=== PATIENT | female | born 1980 | race Caucasian/White ===

== ENCOUNTER 2022-01-16 08:18 | Emergency (ER) | payer OTHER, SELFPAY ==
--- NOTE | 2022-01-16 08:59 | ED.FEMALEGU ---
HPI - Female Genitourinary General Chief complaint: Urogenital-Female Stated complaint: possible UTI Time Seen by Provider: 01/16/22 08:58 Source: patient Mode of arrival: ambulatory Limitations: no limitations History of Present Illness HPI Narrative: 41-year-old female with history of kidney stones presents to the ER with signs and symptoms of UTI. She reports for the last 3 days she had a head worsening increased urinary frequency, urgency, burning upon urination. She also developed some external vaginal itching and white thick discharge. She has history of yeast infection, usually when she is on antibiotics. No recent antibiotics. Not sexually active her concern for STIs. She denies any abdominal pain, nausea, vomiting, fever, chills. She has history of an infected kidney stone and reports she has no back pain. MD elicited complaint: dysuria, vaginal discharge and genital itching Pertinent past history: pyelonephritis Onset (ago): day(s) (3) Location of symptoms: external genitalia, suprapubic and vaginal Severity: moderate Female Urogenital Radiation: Suprapubic Severity scale (1-10): 5 Quality of pain: burning and aching Consistency: intermittent Vaginal discharge: white and thick/cheesy Vaginal bleeding: none Urinary symptoms: Dysuria, Urgency and Frequency Exacerbating factors: urination Relieving factors: none Associated symptoms: denies other symptoms Treatment prior to arrival: none Sexual activity: No Patient : No Related Data Previous Rx's Medication Instructions Recorded fluconazole 150 mg tablet 150 mg PO ONCE #1 tab 01/16/22 (Diflucan) nitrofurantoin 100 mg PO Q12H 5 Days #10 cap 01/16/22 monohydrate/macrocrystals 100 mg capsule (Macrobid) Allergies Allergy/AdvReac Type Severity Reaction Status Date / Time Unable to Assess Allergy Unverified 01/16/22 09:17 Review of Systems Review of Systems: Constitutional: No Fever, No Chills Cardiovascular: No Chest Pain, No SOB Gastrointestinal: No Nausea, No Vomiting, No Diarrhea, No abdominal Pain Genitourinary:+ Dysuria, + Urinary Frequency, No Hematuria, +urinary urgency, +vaginal discharge Musculoskeletal: No joint pain, No Myalgias Skin: No Skin Lesions, No rash Neuro: No Weakness, No Dizziness, No Headache Psych: + Anxiety/Panic, No Depression Heme/Lymph: No Bruising, No Lymphadenopathy Endocrine: No Polyuria, No Polydipsia PMFSH Social History Social History Advance Directives: No Advance Directives Information Provided: No Physical Exam Vital Signs: Vital Signs: Last Vital Signs Pulse 69 01/16/22 09:00 Resp 16 01/16/22 09:00 BP 128/86 01/16/22 09:00 Pulse Ox 97 01/16/22 09:00 BMI result Body Mass Index 34.2 Appearance: Alert. Oriented X3. No acute distress. HEENT: Normal external inspection Neck: Normal inspection. Neck supple. CVS: Normal heart rate and rhythm. Pulses normal. Respiratory: No respiratory distress. Breath sounds normal. Abdomen: Soft and nontender. +BS x4 Pelvic: External genitalia with some mild erythema and excoriation. Vaginal canal with small amount of thick, white vaginal discharge. No cervical motion tenderness or adnexal tenderness. Skin: Skin warm and dry. Normal skin color. Normal skin turgor. No rashes. Extremities: Normal inspection times for. Neuro: Oriented X 3. Grossly normal, nonfocal Course Course Course Narrative: 41-year-old female presenting to the ER with signs and symptoms of UTI as well as external vaginal itching and white vaginal discharge. Low suspicion for STI. She may have a yeast infection as well as a bacterial urinary tract infection. Will send UA and BV panel. Reevaluation(s) Reevaluation #1: UA is weakly positive but given her symptoms of urgency, frequency and dysuria will empirically treat. Will also treat for candidiasis, given her physical exam findings. She is stable for discharge home with p.o. ABX and outpatient follow-up. MDM - Female Genitourinary Lab Data Labs: Lab Results 01/16/22 Range/Units 09:07 Urine Color YELLOW Urine Appearance CLEAR Urine pH 7.5 (5.0-8.0) Ur Specific [place] 1.010 (1.005-1.025) Urine Protein NEG (NEG-TRACE) MG/DL Urine Glucose (UA) NEG (NEG) MG/DL Urine Ketones NEG (NEG) MG/DL Urine Blood NEG (NEG) Urine Nitrite NEG (NEG) Ur Leukocyte Esterase TRACE H (NEG) Urine RBC 0 (0) /HPF Urine WBC 1-4 (0-4) /HPF Ur Squamous Epith Cells 2+ /LPF Urine Bacteria 2+ /LPF Discharge Plan Discharge Clinical Impression: Urinary tract infection, Vulvovaginal candidiasis Patient Disposition: Home, Self-Care Instructions: Urinary Tract Infection in Women (DC), Yeast Infection (ED) Additional Instructions: If you still have itching and vaginal discharge in 3 days, take the additional dose of Diflucan. Take the prescribed antibiotic as directed, take the entire course. Increase her oral hydration drink plenty of water. No sexual activity until of her symptoms are resolved. If you develop new or worsening symptoms call 911 or come back to the ER for further evaluation. Prescriptions: New fluconazole [Diflucan] 150 mg tablet 150 mg PO ONCE Qty: 1 0RF nitrofurantoin monohyd/m-cryst [Macrobid] 100 mg capsule 100 mg PO Q12H 5 Days Qty: 10 0RF Rx Instructions: must administer with a meal/food
[2022-01-16 09:00] VITALS: BP 128/86; PULSE 69; RESP 16; O2SAT 97; BMI 34.2
[2022-01-16 09:15] LABS: Appearance Urine CLEAR; Color Urine YELLOW; Glucose Urine UA NEG (NEG); Leukocyte Esterase Urine TRACE (NEG); Nitrite Urine NEG (NEG); PH 7.5 (5.0-8.0); Urine Blood NEG (NEG); Urine Ketones NEG (NEG); Urine Protein NEG (NEG-TRACE)
[2022-01-16 09:34] LABS: Bacteria Urine 2+ /LPF; RBC Urine 0 /HPF (0); Squamous Epithelial Cell Urine 2+ /LPF
[2022-01-16] MEDS: Fluconazole 150 MG TABLET PO (10:04)
[2022-01-16 13:53] LABS: BV Int Neg Control Negative (Negative); BV Int Pos Control Positive (Positive)
== END 2022-01-16 10:08 | disposition home or self-care (01) ==
PROVIDERS: Physician Assistant; Emergency Provider Emergency Medicine Emergency Medical Services
DX: N39.0 Urinary tract infection, site not specified (principal); B37.3 Candidiasis of vulva and vagina; R35.0 Frequency of micturition; R30.0 Dysuria; Z79.899 Other long term (current) drug therapy
CPT/HCPCS: 81001; 87480; 87510; 87660; 99283

== ENCOUNTER 2022-08-03 16:54 | Emergency (ER) | payer OTHER, SELFPAY ==
--- NOTE | ~2022-08-03 | XR_ITS ---
EXAMINATION: XR CHEST CLINICAL INFORMATION: Shortness of breath. COMPARISON: None TECHNIQUE: 2 views of the chest were obtained. FINDINGS: Normal appearance of the cardiomediastinal silhouette. No focal airspace opacity, pleural effusion or pneumothorax. Small calcified granulomas are noted in the right lung base. Right upper quadrant surgical clips are seen. No acute osseous abnormalities. XR/XR chest 2V IMPRESSION: No acute cardiopulmonary findings.
--- NOTE | 2022-08-03 16:57 | ECG_ITS ---
Test Reason : CHEST PAIN Blood Pressure : / mmHG Vent. Rate : 068 BPM Atrial Rate : 068 BPM P-R Int : 146 ms QRS Dur : 070 ms QT Int : 380 ms P-R-T Axes : 057 033 018 degrees QTc Int : 404 ms Normal sinus rhythm Normal ECG No previous ECGs available Referred By: Generic ED Physician Electronically Signed By:DUC PETER MD
[2022-08-03 18:06] VITALS: BP 128/77; PULSE 74; RESP 20; TEMP 36.6; O2SAT 98; BMI 32.9
--- NOTE | 2022-08-03 18:11 | ED_ITS ---
HPI - URI/Sore Throat General Chief Complaint: Upper Respiratory Symptoms <Radha Beckford MD - Last Filed: 08/03/22 18:11> Stated Complaint: SOB/Chest pain <Radha Beckford MD - Last Filed: 08/03/22 18:11> Time Seen by Provider: 08/03/22 20:26 <Radha Beckford MD - Last Filed: 08/03/22 18:11> Source: patient <BRADFORD Aaron - Last Filed: 08/03/22 23:10> Mode of arrival: ambulatory <BRADFORD Aaron - Last Filed: 08/03/22 23:10> History of Present Illness HPI Narrative: 41-year-old female with a past medical history of asthma, prior DVT no longer on anticoagulation, presenting to the ED complaining of persistent nonproductive cough, SOB, chest discomfort when coughing and moving x few days. Has been using inhaler without relief. Denies known fever, chills, abdominal pain, nausea, vomiting, diarrhea, pedal edema, calf tenderness <BRADFORD Aaron - Last Filed: 08/03/22 23:10> MD elicited complaint: cough <BRADFORD Aaron - Last Filed: 08/03/22 23:10> Onset (ago): day(s) <BRADFORD Aaron - Last Filed: 08/03/22 23:10> Related Data Home Medications: Previous Rx's Medication Instructions Recorded fluconazole 150 mg tablet 150 mg PO ONCE #1 tab 01/16/22 (Diflucan) nitrofurantoin 100 mg PO Q12H 5 days #10 caps 01/16/22 monohydrate/macrocrystals 100 mg capsule (Macrobid) metronidazole 500 mg tablet 500 mg PO Q12H 7 days #14 tabs 01/19/22 <Radha Beckford MD - Last Filed: 08/03/22 18:11> Allergies/Adverse Reactions: Allergies Allergy/AdvReac Type Severity Reaction Status Date / Time No Known Allergies Allergy Verified 01/16/22 10:07 <Radha Beckford MD - Last Filed: 08/03/22 18:11> Review of Systems Review of Systems: Constitutional: No Fever, No Chills, +Fatigue, No Malaise ENT/Mouth: No Ear Pain, + Nasal Congestion, No Sinus Pain, No Hoarseness, No sore throat, No Rhinorrhea, No Swallowing Difficulty Eyes: No Eye Pain, No Swelling, No Redness, No Vision Changes Cardiovascular: + Chest Pain, + SOB, No Dyspnea on Exertion, No Orthopnea, No Edema, No Palpitations Respiratory: + Cough, No Sputum, No Wheezing, + Dyspnea Gastrointestinal: No Nausea, No Vomiting, No Diarrhea, No Constipation, No Abdominal pain Genitourinary: No Dysuria, No Hematuria, No Flank Pain Musculoskeletal: No joint pain, No Myalgias, No Joint Swelling Skin: No Skin Lesions, No rash Neuro: No Weakness, No Headache <BRADFORD Aaron - Last Filed: 08/03/22 23:10> Yes all other systems are reviewed and are negative <BRADFORD Aaron - Last Filed: 08/03/22 23:10> Constitutional: Constitutional: Reports as per HPI <BRADFORD Aaron - Last Filed: 08/03/22 23:10> [facility] Past Medical History Attestation statement: The following information was validated with the patient. <BRADFORD Aaron - Last Filed: 08/03/22 23:10> Social History Social History: Social History Advance Directives: No Advance Directives Information Provided: Yes <Radha Beckford MD - Last Filed: 08/03/22 18:11> Physical Exam Vital Signs: Vital Signs: Last Vital Signs Temp 97.9 F 08/03/22 18:06 Pulse 20 L 08/03/22 21:47 Resp 18 08/03/22 21:47 BP 128/77 08/03/22 18:06 Pulse Ox 98 08/03/22 18:06 O2 Del Method 08/03/22 18:06 BMI result Body Mass Index 32.9 <Radha Beckford MD - Last Filed: 08/03/22 18:11> Vital Signs: Last Vital Signs Temp 97.9 F 08/03/22 18:06 Pulse 20 L 08/03/22 21:47 Resp 18 08/03/22 21:47 BP 128/77 08/03/22 18:06 Pulse Ox 98 08/03/22 18:06 O2 Del Method 08/03/22 18:06 BMI result Body Mass Index 32.9 <BRADFORD Aaron - Last Filed: 08/03/22 23:10> Const: General: cooperative, healthy appearing and no acute distress <BRADFORD Aaron - Last Filed: 08/03/22 23:10> Orientation/consciousness: patient oriented x3 <BRADFORD Aaron - Last Filed: 08/03/22 23:10> Limitations: no limitations <BRADFORD Aaron - Last Filed: 08/03/22 23:10> HEENT: Head: Yes normal to inspection and Yes atraumatic <BRADFORD Aaron - Last Filed: 08/03/22 23:10> Ears: hearing grossly normal bilaterally, external ears normal and TM's normal bilaterally <BRADFORD Aaron - Last Filed: 08/03/22 23:10> General nose exam: Normal external nose present <BRADFORD Aaron - Last Filed: 08/03/22 23:10> Face and sinus: Yes normal facial exam <BRADFORD Aaron - Last Filed: 08/03/22 23:10> Mouth: Normal oral and palatal mucosa present <BRADFORD Aaron - Last Filed: 08/03/22 23:10> Throat: Yes posterior oropharynx normal, Yes tonsils normal, Yes uvula midline, No peritonsillar mass and No uvula laterally displaced <BRADFORD Aaron - Last Filed: 08/03/22 23:10> Eyes: General: appearance normal, both eyes and all related structures <BRADFORD Aaron - Last Filed: 08/03/22 23:10> EOM: EOMs intact bilaterally <BRADFORD Aaron - Last Filed: 08/03/22 23:10> Neck: Neck: Yes normal visual inspection, Yes no lymphadenopathy and Yes no meningeal signs <BRADFORD Aaron - Last Filed: 08/03/22 23:10> Resp: Effort & Inspection: normal respiratory effort and no respiratory distress <BRADFORD Aaron - Last Filed: 08/03/22 23:10> Auscultation: clear to auscultation bilaterally, no crackles, no rales and no rhonchi <Zuly Poulevt, PA - Last Filed: 08/03/22 23:10> Cardio: Rate: regular rate <Zuly Pouliot, PA - Last Filed: 08/03/22 23:10> Heart sounds: S1 normal heart sound present and S2 normal heart sound present <Zuly Poulevt, PA - Last Filed: 08/03/22 23:10> GI: Inspection: Yes normal to inspection <Zuly Pouliot, PA - Last Filed: 08/03/22 23:10> Palpation (GI): Soft to palpation, nontender, no guarding and not rigid <Zuly Pouliot, PA - Last Filed: 08/03/22 23:10> : General: Yes no CVA tenderness <Zuly Poulevt, PA - Last Filed: 08/03/22 23:10> Back/Spine/Pelvis: Back: no CVA tenderness <Zuly Pouliot, PA - Last Filed: 08/03/22 23:10> Skin: Rashes: no rashes <Zuly Poulevt PA - Last Filed: 08/03/22 23:10> Wounds: no wounds <Zuly Pouliot, PA - Last Filed: 08/03/22 23:10> Neuro: General: patient oriented x3, tone normal and no meningeal signs <Zuly Poulevt, PA - Last Filed: 08/03/22 23:10> Gait exam (Neuro): Normal gait present <Zuly Poulshemar PA - Last Filed: 08/03/22 23:10> Extrem: General: Yes normal to inspection, Yes no pedal edema and Yes no calf tenderness <Zuly Pouliot PA - Last Filed: 08/03/22 23:10> Course Course Course Narrative: 45F with hx asthma and now has cough, SOB, but denies sore throat/ear pain/fevers/chills/N/V/diarrhea. VS Reviewed GEN: NAD EARS: wnl THROAT: wnl LUNGS: CTAB CVS: RRR ABD: NT/ND <Radha Beckford MD - Last Filed: 08/03/22 18:11> 45F with hx asthma and now has cough, SOB, but denies sore throat/ear pain/fevers/chills/N/V/diarrhea. VS Reviewed GEN: NAD EARS: wnl THROAT: wnl LUNGS: CTAB CVS: RRR ABD: NT/ND -2305--no leukocytosis. H&H stable. D-dimer WNL. Troponin negative. Labs otherwise reassuring -COVID-19 and influenza negative XR chest 2V IMPRESSION: No acute cardiopulmonary findings. >Results discussed with patient including worrisome signs and symptoms and strict return precautions, and when to return to the emergency department. They verbalized understanding and feel safe for discharge at this time. <BRADFORD Aaron - Last Filed: 08/03/22 23:10> Medications Administered Discontinued Medications Generic Name Dose Route Start Last Admin Trade Name Freq PRN Reason Stop Dose Admin Albuterol/Ipratropium 3 ml 08/03/22 21:31 08/03/22 21:42 Albuterol/Iprat 2.5/0.5mg 3 Ml Ampul.Neb INHALE 08/03/22 21:32 3 ml ONCE ONE Administration <Radha Beckford MD - Last Filed: 08/03/22 18:11> Medications Administered Discontinued Medications Generic Name Dose Route Start Last Admin Trade Name Freq PRN Reason Stop Dose Admin Albuterol/Ipratropium 3 ml 08/03/22 21:31 08/03/22 21:42 Albuterol/Iprat 2.5/0.5mg 3 Ml Ampul.Neb INHALE 08/03/22 21:32 3 ml ONCE ONE Administration <BRADFORD Aaron - Last Filed: 08/03/22 23:10> Medical Decision Making Medical Decision Making MDM Narrative: 41-year-old female with a past medical history of asthma, prior DVT no longer on anticoagulation, presenting to the ED complaining of persistent nonproductive cough, SOB, chest discomfort when coughing and moving x few days. On exam vital signs stable, NAD, nontoxic appearing, lungs CTA, no pedal edema/calf tenderness. Concern for asthma exacerbation vs bronchitis vs viral syndrome vs PE. R/o ACS. Low suspicion for DVT/CHF Plan: EKG, labs, CXR, COVID 19/influenza testing <BRADFORD Aaron - Last Filed: 08/03/22 23:10> Differential Diagnoses: Differential diagnosis Differential Diagnosis: The differential diagnosis associated with the patient?s presentation includes: as above <BRADFORD Aaron - Last Filed: 08/03/22 23:10> Lab Attestation: I reviewed the patient's lab results. <BRADFORD Aaron - Last Filed: 08/03/22 23:10> Independent interpretation of EKG, rhythm strip, radiology study: Independent interp EKG,rhythm strip, radiology study I performed an independent interpretation of the: EKG My interpretation is normal sinus rhythm at a rate of 68. P.r. interval 146. QTC 404. No STEMI <BRADFORD Aaron - Last Filed: 08/03/22 23:10> Discharge Plan Discharge Clinical Impression: Upper respiratory infection <Radha Beckford MD - Last Filed: 08/03/22 18:11> Patient Disposition: Home, Self-Care <Radha Beckford MD - Last Filed: 08/03/22 18:11> Instructions: Upper Respiratory Infection (ED) <Radha Beckford MD - Last Filed: 08/03/22 18:11> Prescriptions: No Action fluconazole [Diflucan] 150 mg tablet 150 mg PO ONCE Qty: 1 0RF nitrofurantoin monohyd/m-cryst [Macrobid] 100 mg capsule 100 mg PO Q12H 5 Days Qty: 10 0RF Rx Instructions: must administer with a meal/food metronidazole 500 mg tablet 500 mg PO Q12H 7 Days Qty: 14 0RF <Radha Beckford MD - Last Filed: 08/03/22 18:11> Referrals: Physician,Unknown J [Primary Care Provider] - 3 days <Radha Beckford MD - Last Filed: 08/03/22 18:11>
[2022-08-03 18:36] LABS: COVID-19 Test Negative (Negative)
[2022-08-03 18:37] LABS: IDNOW Serial# 55D5AD1C; Influenza A Negative (Negative); Influenza B2 Negative (Negative)
[2022-08-03] MEDS: Albuterol/Iprat 2.5/0.5MG 3 ML AMPUL.NEB INHALE (21:42)
[2022-08-03 21:47] VITALS: PULSE 20; RESP 18; O2SAT 98
[2022-08-03 22:03] LABS: MANUAL DIFF FLAG NO
[2022-08-03 22:08] LABS: Basophils Absolute Auto 0.1 X10*3/uL (0.0-0.2); Basophils Percent Auto 0.7 % (0-2); Eosinophils Absolute Auto 0.2 X10*3/uL (0.0-0.4); Eosinophils Percent Auto 2.4 % (0-4); Hemoglobin 13.8 g/dl (12.0-16.0); Imm Gran Abs Auto 0.05 X10*3/uL (0.00-0.03); Imm Gran Pct Auto 0.6 % (0.0-0.4); Lymphocytes Absolute Auto 3.9 X10*3/uL (1.2-4.9); Lymphocytes Percent Auto 43.5 % (20-40); Mean Corpuscular HGB Conc 33.7 g/dl (31.0-35.0); Mean Corpuscular Hemoglobin 29.9 pg (27.0-33.0); Mean Corpuscular Volume 88.9 fL (80.0-98.0); Mean Platelet Volume 8.7 fL (9.4-12.3); Monocytes Absolute Auto 0.5 X10*3/uL (0.1-1.2); Monocytes Percent Auto 5.5 % (2-11); Neutrophils Absolute Auto 4.3 x10*3/uL (2.0-8.3); Neutrophils Percent Auto 47.3 % (45-73); Platelet Count 303 X10*3/uL (160-400); Red Blood Count 4.61 X10*6/uL (4.20-5.50); Red Cell Distribution Width 12.5 % (11.0-16.0)
[2022-08-03 22:23] LABS: Anion Gap 13 (12-20); Blood Urea Nitrogen 7 mg/dL (9-16); Calcium 8.9 mg/dL (8.4-10.2); Carbon Dioxide 24 mmol/L (22-29); Chloride 105 mmol/L (96-108); Estimated Glomerular Filt Rate > 60; Glucose Random 99 mg/dL (60-115); Potassium 3.8 mmol/L (3.3-5.1); Sodium 138 mmol/L (135-145)
[2022-08-03 22:30] LABS: B Type Natriuretic Peptide < 10 pg/mL (<100)
[2022-08-03 22:32] LABS: Troponin-I High Sensitivity < 3.5 ng/L (<3.5-17.0)
[2022-08-03 22:37] LABS: D Dimer High Sensitivity < 150 NG/ML
[2022-08-03 23:13] VITALS: BP 111/69; PULSE 77; RESP 18; TEMP 36.6; O2SAT 99
== END 2022-08-03 23:26 | disposition home or self-care (01) ==
PROVIDERS: Physician Assistant; Student in an Organized Health Care Education/Training Program; Emergency Provider Internal Medicine
DX: J06.9 Acute upper respiratory infection, unspecified (principal); R07.89 Other chest pain; R06.02 Shortness of breath; Z20.822 Contact with and (suspected) exposure to COVID-19; Z79.899 Other long term (current) drug therapy
CPT/HCPCS: 36415; 71046; 80048; 83880; 84484; 85025; 85379; 87502; 87635; 93005; 94640; 99284

== ENCOUNTER 2023-11-25 06:05 | Outpatient (REF) | payer OTHER, SELFPAY ==
[2023-11-25 10:49] LABS: MANUAL DIFF FLAG NO
[2023-11-25 10:51] LABS: Basophils Absolute Auto 0.1 X10*3/uL (0.0-0.2); Basophils Percent Auto 0.8 % (0-2); Eosinophils Absolute Auto 0.2 X10*3/uL (0.0-0.4); Eosinophils Percent Auto 3.8 % (0-4); Hematocrit 40.3 % (37.0-47.0); Hemoglobin 13.7 g/dl (12.0-16.0); Imm Gran Abs Auto 0.07 X10*3/uL (0.00-0.03); Imm Gran Pct Auto 1.2 % (0.0-0.4); Lymphocytes Absolute Auto 1.8 X10*3/uL (1.2-4.9); Lymphocytes Percent Auto 29.7 % (20-40); Mean Corpuscular Hemoglobin 30.5 pg (27.0-33.0); Mean Corpuscular Volume 89.8 fL (80.0-98.0); Mean Platelet Volume 9.4 fL (9.4-12.3); Monocytes Absolute Auto 0.3 X10*3/uL (0.1-1.2); Monocytes Percent Auto 5.5 % (2-11); Neutrophils Absolute Auto 3.5 x10*3/uL (2.0-8.3); Platelet Count 288 X10*3/uL (160-400); Red Blood Count 4.49 X10*6/uL (4.20-5.50); Red Cell Distribution Width 12.2 % (11.0-16.0)
[2023-11-25 11:20] LABS: Alanine Aminotransferase 18 U/L (0-31); Albumin Level 4.1 g/dL (3.5-5.0); Alkaline Phosphatase 64 U/L (39-117); Anion Gap 11 (12-20); Aspartate Amino Transferase 22 U/L (5-31); Bilirubin Total 0.4 mg/dL (0.0-1.0); Blood Urea Nitrogen 15 mg/dL (9-16); Calcium 9.2 mg/dL (8.4-10.2); Carbon Dioxide 26 mmol/L (22-29); Chloride 106 mmol/L (96-108); Cholesterol 161 mg/dL (<200); Estimated Glomerular Filt Rate > 60; Glucose Random 99 mg/dL (60-115); HDL Cholesterol 51 mg/dL (>40); LDL Cholesterol Calculated 96 mg/dL (<100); Potassium 4.1 mmol/L (3.3-5.1); Sodium 139 mmol/L (135-145); TSH reflex Free T4 1.14 uIU/mL (0.32-4.0); Triglycerides 70 mg/dL (<150); Vitamin D 25-OH Total 41.6 ng/mL (>30)
== END 2023-11-25 06:06 | disposition home or self-care (01) ==
LOC: HO.HMGCLDS 06:05
PROVIDERS: PCP Physician Assistant; Visit Provider Physician Assistant
DX: Z00.00 Encounter for general adult medical examination without abnormal findings (principal); Z13.6 Encounter for screening for cardiovascular disorders
CPT/HCPCS: 36415; 80053; 80061; 82306; 84443; 85025